=== PATIENT | female | born 1995 | race Caucasian/White ===

== ENCOUNTER 2016-11-14 11:05 | Outpatient (CLI) | payer MEDICAID | END 2016-11-14 14:47 | disposition home or self-care (01) | LOC: MW.OBCHECK 11:05 → MW.OB 11:17 → MW.OBCHECK 14:47 | PROVIDERS: ATTEND Obstetrics & Gynecology | DX: Z34.02 Encounter for supervision of normal first pregnancy, second trimester (principal); O42.912 Preterm premature rupture of membranes, unspecified as to length of time between rupture and onset of labor, second trimester | CPT/HCPCS: 59025; 81001; 84112; 87480; 87510; 87660 ==

== ENCOUNTER 2017-02-23 01:47 | Inpatient (IN) | payer MEDICAID ==
[2017-02-23] MEDS ORDERED: Butorphanol 1 MG/ML SDV IVPUSH PRN (13:38)
[2017-02-23] MEDS ORDERED: Water For Irrigation,Sterile 1,000 ML Container IRR PRN (13:38)
[2017-02-23] MEDS ORDERED: Nalbuphine 10 MG/1 ML Vial IVPUSH PRN (13:38)
[2017-02-23] MEDS ORDERED: Sodium Chloride 0.9% 2.5 ML Syringe FLUSH PRN (13:38)
[2017-02-23] MEDS ORDERED: Lidocaine 1% 50 ML MDV INJECT PRN (13:38)
[2017-02-23] MEDS ORDERED: Carboprost Tromethamine 250 MCG/1 ML Amp IM PRN (13:38)
[2017-02-23] MEDS ORDERED: Sodium Chloride 0.9% 10 ML Syringe FLUSH PRN (13:38)
[2017-02-23] MEDS ORDERED: Misoprostol 200 MCG Tab PO PRN (13:38)
[2017-02-23] MEDS ORDERED: Methylergonovine 0.2 MG/1 ML Amp IM PRN (13:38)
[2017-02-23] MEDS ORDERED: Terbutaline 1 MG/ML SDV SUBCUT PRN (13:38)
[2017-02-23] MEDS ORDERED: Oxytocin/Lactated Ringers 30 UNIT/500 ML BAG IV SCH ×2 (13:45)
[2017-02-23] MEDS: Lactated Ringers 1,000 ML IV SCH ×2 (14:25→21:06)
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
[2017-02-23] MEDS ORDERED: fentaNYL 100 MCG/2 ML SDV ONE (21:00)
[2017-02-23] MEDS ORDERED: Ropivacaine HCl/PF 100 ML ONE (21:00)
[2017-02-24] MEDS ORDERED: Witch Hazel Medicated Pads 40/Jar TOP PRN (02:23)
[2017-02-24] MEDS ORDERED: Lanolin 100% Cream 7 GM Tube TOP PRN (02:23)
[2017-02-24] MEDS ORDERED: oxyCODONE 5 MG Tab PO PRN (02:23)
[2017-02-24] MEDS ORDERED: Bisacodyl 10 MG Supp RECTAL PRN (02:23)
[2017-02-24] MEDS ORDERED: Ibuprofen 800 MG Tab PO PRN (02:23)
[2017-02-24] MEDS ORDERED: Benzocaine/Menthol 20%-0.5% Spray 78 GM Cannister TOP PRN (02:23)
[2017-02-24] MEDS ORDERED: Acetaminophen 500 MG Tab PO PRN (02:23)
[2017-02-24] MEDS ORDERED: Docusate Sodium 100 MG Cap PO PRN (02:23)
--- NOTE | 2017-02-24 03:35 | OR ---
SURGEON: Rosey Bojorquez DATE OF PROCEDURE: 02/24/2017 PREDELIVERY HISTORY: This is a 21-year-old G1, P0, presented to Labor and Delivery at 41 weeks and 2 days for induction of labor for past due status at 41 weeks and 3 days. The patient's cervix was favorable at 2-3 cm dilated, 70% effaced, and -1 station by the examining physician in the office. heart tracing was significant for a category 1 status prior to start of IV Pitocin. Once the patient was liliana every 2 minutes with IV Pitocin, amniotomy was performed for clear fluid. The patient received two doses of IV pain medications before proceeding to the epidural. Once the patient received her epidural, the patient relaxed and the patient eventually progressed to complete status. The patient started maternal expulsive efforts secondary to sensation of increased rectal pressure. PREOPERATIVE DIAGNOSES: 1. Intrauterine at 41 weeks 3 days. 2. Induction of labor for past due status. 3. GBS negative. POSTOPERATIVE DIAGNOSIS: 1. Intrauterine at 41 weeks 3 days. 2. Induction of labor for past due status. 3. GBS negative. 4. Delivered status. PROCEDURE PERFORMED: Spontaneous-assisted vaginal delivery. ANESTHESIA TYPE: Epidural. ESTIMATED BLOOD LOSS: 100 mL. FINDINGS: Viable female infant in vertex presentation with score of 9 and 9 at 1 and 5 minutes respectively and weight of 3750 g. Normal intact placenta with 3- vessel cord. Intact perineum. COMPLICATIONS: None known. DISPOSITION: Mom and tolerated the procedure well. DESCRIPTION OF PROCEDURE: This female under epidural anesthesia delivered a viable female infant, with score of 9 and 9 and at 1 and 5 minutes respectively and weight of 3750 g. Delivery was via spontaneous assisted vaginal delivery with in vertex presentation. Upon delivery of the vertex, neck was checked. There was a nuchal to be reduced and with gentle downward traction, the anterior shoulder was attempted to be delivered. It did not deliver spontaneously with gentle downward traction, so the shoulders were shifted to 180 degrees, which dislodged the anterior shoulder, followed by the body. The was bulb suctioned at delivery and had a spontaneous cry, was placed directly on mom's abdomen at maternal request. Cord was doubly clamped and cut. Cord blood was collected and sent for analysis. After delivery of the , IV Pitocin was given as an uterotonic to prevent excessive maternal blood loss and to help expel the placenta for active management of the 3rd stage of labor. With signs of placental separation, a fundal massage was completed along with traction on the umbilical cord and a normal intact placenta with 3- vessel cord was delivered. After delivery of the infant and placenta, the vagina, perineum, and rectum were explored and the patient had a hemostatic right labia minora in her region. Afterwards, the lower uterine segment was cleared of any trailing membranes for the placenta and remainder of any clots and debris. The patient was cleansed, pads were changed, and the bed was returned to functioning status. The patient and tolerated the procedure well. Sponge, lap, needle, and instrument counts were correct. TEJAS / EVE /[id number] [id number]
--- NOTE | 2017-02-24 07:49 | PCM48HPAN ---
Post Anesthesia Note - EVALUATION WITHIN 48HRS OF ANESTHETIC Vital Signs in Normal Range: Yes Patient Participated in Evaluation: Yes Respiratory Function Stable: Yes Airway Patent: Yes Cardiovascular Function Stable: Yes Hydration Status Stable: Yes Pain Control Satisfactory: Yes Nausea and Vomiting Control Satisfactory: Yes Mental Status Recovered: Yes
--- NOTE | 2017-02-25 07:08 | PCM.PNPP ---
- General Info Date of Service: 02/25/17 Functional Status: Reports: pain controlled, tolerating diet, ambulating, urinating - Review of Systems General: Reports: No Symptoms HEENT: Reports: no symptoms Pulmonary: Reports: no symptoms Cardiovascular: Reports: No Symptoms Gastrointestinal: Reports: No symptoms Genitourinary: Reports: no symptoms Musculoskeletal: Reports: no symptoms Skin: Reports: no symptoms Neurological: Reports: No Symptoms Psychiatric: Reports: no symptoms - General Info Date of Service: 02/25/17 - Patient Data Vital Signs - most recent: Last Vital Signs Temp 36.2 C 02/25/17 04:00 Pulse 78 02/25/17 04:00 Resp 15 02/25/17 04:00 BP 104/63 02/25/17 04:00 Pulse Ox 97 02/25/17 04:00 Weight - most recent: 69.853 kg Lab Results - last 24 hrs: Laboratory Results - last 24 hr 02/25/17 Range/Units 05:35 Hgb 9.4 L (12.0-16.0) g/dL Hct 30.2 L (36.0-46.0) % Med Orders - Current: Current Medications Acetaminophen (Tylenol Extra Strength) 500 mg PO Q4H PRN PRN Reason: Pain Benzocaine/Menthol (Dermoplast Pain Relief 20%-0.5% [place]) 78 gm TOP ASDIRECTED PRN PRN Reason: Perineal Comfort Measure Bisacodyl (Dulcolax) 10 mg RECTAL .ONCE PRN PRN Reason: Constipation Butorphanol Tartrate (Stadol) 1 mg IVPUSH ASDIRECTED PRN PRN Reason: Pain Last Admin: 02/23/17 19:10 Dose: 1 mg Carboprost Tromethamine (Hemabate Ds) 250 mcg IM ASDIRECTED PRN PRN Reason: Post Hemorrhage Docusate Sodium (Colace) 100 mg PO BID PRN PRN Reason: Constipation Emollient Ointment (Lansinoh Hpa) 0 gm TOP ASDIRECTED PRN PRN Reason: Sore Nipples Lactated Ringer's (Ringers, Lactated) 1,000 mls @ 150 mls/hr IV ASDIRECTED CARISSA Last Admin: 02/23/17 21:06 Dose: 150 mls/hr Oxytocin/Lactated Ringer's (Pitocin In Lr 30 Units/500 Ml) 30 unit in 500 mls @ 2 mls/hr IV TITRATE CARISSA; 2 MUNITS/MIN PRN Reason: Protocol Last Titration: 02/24/17 02:15 Dose: 250 munits/min, 250 mls/hr Ibuprofen (Motrin) 800 mg PO Q6H PRN PRN Reason: Pain Lidocaine HCl (Xylocaine 1%) 50 ml INJECT .ONCE PRN PRN Reason: Laceration repair Methylergonovine Maleate (Methergine) 0.2 mg IM ASDIRECTED PRN PRN Reason: Post Hemorrhage Misoprostol (Cytotec) 200 mcg PO .ONCE PRN PRN Reason: Post Hemorrhage Nalbuphine HCl (Nubain) 10 mg IVPUSH ASDIRECTED PRN PRN Reason: Pain (severe 7-10) Stop: 02/25/17 13:39 Oxycodone HCl (Oxycodone) 5 mg PO Q2H PRN PRN Reason: Pain Sodium Chloride (Saline Flush) 10 ml FLUSH ASDIRECTED PRN PRN Reason: Keep Vein Open Sodium Chloride (Saline Flush) 2.5 ml FLUSH ASDIRECTED PRN PRN Reason: Keep Vein Open Sterile Water (Sterile Water For Irrigation) 1,000 ml IRR ASDIRECTED PRN PRN Reason: delivery Last Admin: 02/24/17 02:06 Dose: 1,000 ml Terbutaline Sulfate (Brethine) 0.25 mg SUBCUT ASDIRECTED PRN PRN Reason: Tacysystole Witch Kallie (Tucks) 1 pad TOP ASDIRECTED PRN PRN Reason: comfort care Discontinued Medications Fentanyl (Sublimaze) Confirm Administered Dose 100 mcg .ROUTE .STK-MED ONE Stop: 02/23/17 21:01 Last Admin: 02/24/17 08:10 Dose: Not Given Oxytocin/Lactated Ringer's (Pitocin In Lr 30 Units/500 Ml) 30 unit in 500 mls @ 999 mls/hr IV ASDIRECTED CARISSA PRN Reason: 999 MUNITS/MIN Stop: 02/23/17 14:16 Last Admin: 02/24/17 08:08 Dose: Not Given Ropivacaine (Naropin 0.2%) Confirm Administered Dose 100 mls @ as directed .ROUTE .STK-MED ONE Stop: 02/23/17 21:01 Last Admin: 02/24/17 08:10 Dose: Not Given - Interaction Disposition, : in Room with Family Interaction: Holding Infant Feeding: Breastfed Infant; Nursed Well Support Person: - Recovery Exam Fundal Tone: Firm Fundal Level: 1 Fingerbreadths Below Umbilicus Fundal Placement: Midline Lochia Amount: Scant Lochia Color: Rubra/Red Perineum Description: Intact, Minimal Bruising/Swelling Bladder Status: Voiding Urinary Elimination: Voided - Exam General: alert, oriented Neck: supple Lungs: Clear to auscultation, Normal respiratory effort Cardiovascular: Regular Rate, Regular Rhythm Abdomen: bowel sounds present, soft Extremities: no calf tenderness Skin: warm, dry, intact Neurological: no new focal deficit Psy/Mental Status: alert, normal affect, normal mood - Problem List & Annotations (1) Vaginal delivery SNOMED Code(s): 298420968 Code(s): O80 - ENCOUNTER FOR FULL-TERM UNCOMPLICATED DELIVERY Status: Acute Current Visit: Yes - Problem List Review Problem List Initiated/Reviewed/Updated: Yes - My Orders Last 24 Hours: My Active Orders 02/24/17 Breakfast Regular Diet [DIET] - Assessment Assessment:: PPD#1 S/p SAVD Doing well Unsure if desires to go home today - Plan Plan:: Discharge instructions given if patients desires to go home today Follow up in 6wks if d/c home today Pelvic rest for 6wks Infection precautions given Thrombotic precautions given Bleeding precautions given blues/depression precautions given
[2017-02-25 08:57] VITALS: BP 122/61
== END 2017-02-25 12:55 | disposition home or self-care (01) | DRG 775 ==
LOC: MW.OB 01:47 → OBSVTOIN 02-24 01:47 → MW.OB 02-24 05:00
PROVIDERS: ADMIT Obstetrics & Gynecology; ATTEND Obstetrics & Gynecology
PROC: 10E0XZZ Delivery of Products of Conception, External Approach (ICD-10-PCS; principal; 2017-02-24)
PROC: 3E033VJ Introduction of Other Hormone into Peripheral Vein, Percutaneous Approach (ICD-10-PCS; 2017-02-24)
DX: O48.0 Post-term pregnancy (principal); O69.1XX0 Labor and delivery complicated by cord around neck, with compression, not applicable or unspecified; Z3A.41 41 weeks gestation of pregnancy; Z37.0 Single live birth
CPT/HCPCS: 01967; 36415; 59025; 85014; 85018; 85027; 86850; 86900; 86901; A9270-GY; J0595; J7120